=== PATIENT | female | born 1960 | race Caucasian/White ===

== ENCOUNTER 2024-08-04 16:57 | Emergency (ER) | payer MEDICARE, MEDICAID, SELFPAY ==
--- NOTE | ~2024-08-04 | XR_ITS ---
CLINICAL HISTORY: pain Three views of the left shoulder. COMPARISON: None FINDINGS: Proximal left humerus, the left scapula, and the left clavicle appear intact. Humeral head is appropriately seated in the glenoid. Small calcification present along the greater tuberosity. Mild hypertrophy of the left acromioclavicular joint. Visualized portions of the left lung are clear. IMPRESSION: 1. No radiographic evidence of acute injury to the left shoulder. 2. 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 3. Mild acromioclavicular joint degenerative changes. This document has been electronically signed by: Bhavik Painter MD on 08/04/2024 18:47:16
--- NOTE | 2024-08-04 17:00 | ECG_ITS ---
Test Reason : L ARM PAIN Blood Pressure : / mmHG Vent. Rate : 084 BPM Atrial Rate : 084 BPM P-R Int : 168 ms QRS Dur : 084 ms QT Int : 364 ms P-R-T Axes : 044 -13 068 degrees QTc Int : 430 ms Normal sinus rhythm Left ventricular hypertrophy with repolarization abnormality ( R in aVL , [employer] product ) Abnormal ECG No previous ECGs available Referred By: Christelle Wade Electronically Signed By:KIMMIE SALCIDO MD
--- NOTE | 2024-08-04 17:11 | ED.GENADULT ---
HPI - General Adult General Chief complaint: General Medical Stated complaint: left arm pain, high bp Time Seen by Provider: 08/04/24 22:21 Source: patient, RN notes reviewed and old records reviewed Mode of arrival: ambulatory Limitations: no limitations History of Present Illness ED Provider: Young TAMEZ narrative: 64-year-old female presents for evaluation of left shoulder pain. She has had the pain for the last few weeks but worsening since yesterday The patient states that she can not sleep due to the pain her left shoulder. She states it starts? at the back of my shoulder blade. ? The pain radiates up into her neck and into her left shoulder and down the left arm. Her pain is worse with movement. She denies any injury She denies any history of coronary artery disease but does have a history of diabetes and hypertension Denies any chest pain or shortness of breath Related Data Previous Rx's ?Medication ?Instructions ?Recorded naproxen 500 mg tablet 500 mg PO BID PRN pain #20 tabs 08/04/24 Allergies Allergy/AdvReac Type Severity Reaction Status Date / Time No Known Allergies Allergy Verified 08/04/24 17:16 Review of Systems Constitutional: Constitutional: Denies body ache(s), Denies chills, Denies fever(s) and Denies headache(s) Eyes: Eyes: Denies exophthalmos ENT: Denies vertigo, Denies dizziness and Denies headache(s) Cardiovascular: Cardiovascular: Denies chest pain and Denies dyspnea Respiratory: Respiratory: Denies cough and Denies dyspnea Gastrointestinal: Gastrointestinal: Denies abdominal pain Musculoskeletal: Musculoskeletal: Reports arthralgias, Reports joint swelling, Reports limited range of motion and Denies numbness Integumentary/Breasts: Skin/Breast: Denies rash Neurologic: Denies vertigo, Denies dizziness, Denies headache(s) and Denies numbness Psychiatric: Psychiatric: Denies anxiety PMFSH Social History Social History Advance Directives: No Advance Directives Information Provided: No Do you have a plan to hurt others: No Plan Physical Exam ED Vital Signs: Vital Signs - 24 hr 08/04/24 17:15 08/04/24 20:15 08/04/24 23:41 Temperature 98.4 F 98.6 F Pulse Rate 95 85 74 Respiratory Rate 16 18 15 Blood Pressure 191/96 H 172/84 H 168/83 H Pulse Oximetry 97 96 96 Oxygen Delivery Method Room Air Room Air Room Air BMI result Body Mass Index 40.0 Const General: healthy appearing, comfortable, no acute distress, alert and awake Nutritional Appearance: well nourished Orientation/consciousness: patient oriented x3 HENMT Head: Yes normocephalic and Yes atraumatic Eyes Eyelids: Yes eyelids normal Conjunctivae: conjunctivae normal Sclerae: sclerae normal Corneas: corneas normal Pupils: Equal, round and reactive pupils present EOM: EOMs intact bilaterally Neck Neck: Yes full ROM Resp Effort & Inspection: normal respiratory effort, able to speak in complete sentences and not labored Cardio Rate: regular rate Rhythm: regular rhythm GI Inspection: No distended Palpation (GI): Soft to palpation, not firm, nontender, no guarding and not rigid Skin General skin exam: elasticity normal Neuro General: patient oriented x3 Cranial nerves: Yes Equal, round and reactive pupils present and Yes Bilaterally intact EOM present Cognition (Neuro): normal cognition Course Course Course Narrative: This is a Rapid Medical Exam performed in triage by Christelle Wade PA-C. Full HPI, ROS and PE to be performed by primary ED provider. 64 yo F presenting to the ED c/o LUE pain x few weeks & elevated BP at home to 165/93. Admits to assoc [facility]. denies known injury/fall. Reports compliance w/BP meds. Denies CP/SOB, numbness/tingling PE: ambulating w/steady gait, nontoxic appearing, BP 191/96 Plan: EKG, labs, XR Medical Decision Making Medical Decision Making [facility] Narrative: 64-year-old female presents for evaluation of left upper back and shoulder pain. Her pain is reproducible on exam. It is not pleuritic in nature. She has no history of coronary artery disease but does have several risk factors. The patient's troponin is negative and she rules out for ACS with a nonischemic EKG. The patient was hypertensive on arrival which improved without intervention. This is possibly due to her discomfort/shoulder pain. She has no chest pain that radiates through to her back but rather back pain that is reproducible, I feel that aortic dissection is less likely as well. Her shoulder x-ray shows calcific tendonitis which is likely the cause of her pain today. I discussed this with the patient and she will be discharged with symptomatic care. Differential Diagnosis Differential Diagnoses: The differential diagnosis associated with the presentation includes Calcific tendinitis ACS less likely Aortic dissection less likely Shoulder sprain Muscle strain Lab Data MDM Lab Attestation statement: I reviewed the patient's lab results. No leukocytosis or anemia. Normal platelet count. No electrolyte abnormalities. Random glucose of 117. There was no evidence of DKA but the patient is a diabetic. 08/04/24 18:14 08/04/24 18:14 Labs: Lab Results 08/04/24 Range/Units 18:14 WBC 8.9 (4.8-10.8) X10*3/uL RBC 4.74 (4.20-5.50) X10*6/uL Hgb 12.5 (12.0-16.0) g/dl Hct 38.6 (37.0-47.0) % MCV 81.4 (80.0-98.0) fL MCH 26.4 L (27.0-33.0) pg MCHC 32.4 (31.0-35.0) g/dl RDW 14.9 (11.0-16.0) % Plt Count 273 (160-400) X10*3/uL MPV 11.0 (9.4-12.3) fL Immature Gran % (Auto) 0.9 H (0.0-0.4) % Neut % (Auto) 68.3 (45-73) % Lymph % (Auto) 19.2 L (20-40) % [place] % (Auto) 6.7 (2-11) % Eos % (Auto) 4.2 H (0-4) % Baso % (Auto) 0.7 (0-2) % Lymph # (Auto) 1.7 (1.2-4.9) X10*3/uL [place] # (Auto) 0.6 (0.1-1.2) X10*3/uL Eos # (Auto) 0.4 (0.0-0.4) X10*3/uL Baso # (Auto) 0.1 (0.0-0.2) X10*3/uL Abs Immat Gran (auto) 0.08 H (0.00-0.03) X10*3/uL Absolute Neuts (auto) 6.1 (2.0-8.3) x10*3/uL Absolute Nucleated RBC 0.000 (0.0-0.012) X10*3/uL Nucleated RBC % (auto) 0.0 (0.0-0.2) /100WBC Sodium 141 (135-145) mmol/L Potassium 3.9 (3.3-5.1) mmol/L Chloride 104 (96-108) mmol/L Carbon Dioxide 25 (22-29) mmol/L Anion Gap 16 (12-20) BUN 12 (9-16) mg/dL Creatinine 0.70 (0.5-1.4) mg/dL Estim Creat Clear Calc 88.1 Estimated GFR > 60 Random Glucose 117 H (60-115) mg/dL Calcium 9.1 (8.4-10.2) mg/dL Magnesium 1.8 (1.6-2.6) mg/dL Total Bilirubin 0.4 (0.0-1.0) mg/dL Direct Bilirubin 0.2 (0.0-0.5) mg/dL AST 43 H (5-31) U/L ALT 38 H (0-31) U/L Alkaline Phosphatase 98 (39-117) U/L Troponin I High Sens < 2.7 (<3.5-17.0) ng/L Total Protein 7.6 (6.5-8.0) g/dL Albumin 4.3 (3.5-5.0) g/dL Independent Interpretation I performed an independent interpretation of an: EKG Interpretation: Normal sinus rhythm with a rate of [address] segment elevations or depressions. Radiology Impression Discussion of test interpretation with radiology: I have reviewed the radiologist's reading. Radiologist Impression: FINDINGS: Proximal left humerus, the left scapula, and the left clavicle appear intact. Humeral head is appropriately seated in the glenoid. Small calcification present along the greater tuberosity. Mild hypertrophy of the left acromioclavicular joint. Visualized portions of the left lung are clear. IMPRESSION: 1. No radiographic evidence of acute injury to the left shoulder. 2. 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 3. Mild acromioclavicular joint degenerative changes. This document has been electronically signed by: Bhavik Painter MD on 08/04/2024 18:47:16 Discharge Plan Discharge Clinical Impression: Calcific tendonitis of left shoulder region Patient Disposition: Home, Self-Care Instructions: Rotator Cuff Tendinitis (ED), Calcific Tendinitis (ED) Additional Instructions: Your blood work was reassuring. Your x-ray showed calcific tendinitis of the left rotator cuff This is likely the cause of your pain today Take naproxen twice a day for the pain. You may follow up with Orthopedics at the number provided Prescriptions: New naproxen 500 mg tablet 500 mg PO BID PRN (Reason: pain) Qty: 20 0RF Referrals: Dom Goodwin MD [Physician] - (Calcific tendinitis left shoulder) Print Language: Faroese
[2024-08-04 17:15] VITALS: BP 191/96; PULSE 95; RESP 16; TEMP 36.9; O2SAT 97; BMI 40.0
[2024-08-04 18:20] LABS: MANUAL DIFF FLAG NO
[2024-08-04 18:22] LABS: Basophils Absolute Auto 0.1 X10*3/uL (0.0-0.2); Basophils Percent Auto 0.7 % (0-2); Eosinophils Absolute Auto 0.4 X10*3/uL (0.0-0.4); Eosinophils Percent Auto 4.2 % (0-4); Hematocrit 38.6 % (37.0-47.0); Hemoglobin 12.5 g/dl (12.0-16.0); Imm Gran Abs Auto 0.08 X10*3/uL (0.00-0.03); Imm Gran Pct Auto 0.9 % (0.0-0.4); Lymphocytes Absolute Auto 1.7 X10*3/uL (1.2-4.9); Lymphocytes Percent Auto 19.2 % (20-40); Mean Corpuscular HGB Conc 32.4 g/dl (31.0-35.0); Mean Corpuscular Hemoglobin 26.4 pg (27.0-33.0); Mean Corpuscular Volume 81.4 fL (80.0-98.0); Monocytes Absolute Auto 0.6 X10*3/uL (0.1-1.2); Monocytes Percent Auto 6.7 % (2-11); Neutrophils Absolute Auto 6.1 x10*3/uL (2.0-8.3); Neutrophils Percent Auto 68.3 % (45-73); Platelet Count 273 X10*3/uL (160-400); Red Blood Count 4.74 X10*6/uL (4.20-5.50); Red Cell Distribution Width 14.9 % (11.0-16.0); White Blood Count 8.9 X10*3/uL (4.8-10.8)
[2024-08-04 18:42] LABS: Alanine Aminotransferase 38 U/L (0-31); Albumin Level 4.3 g/dL (3.5-5.0); Alkaline Phosphatase 98 U/L (39-117); Anion Gap 16 (12-20); Aspartate Amino Transferase 43 U/L (5-31); Bilirubin Direct 0.2 mg/dL (0.0-0.5); Bilirubin Total 0.4 mg/dL (0.0-1.0); Blood Urea Nitrogen 12 mg/dL (9-16); Calcium 9.1 mg/dL (8.4-10.2); Carbon Dioxide 25 mmol/L (22-29); Chloride 104 mmol/L (96-108); Creatinine Clr Calc Pharmacy 88.1; Estimated Glomerular Filt Rate > 60; Glucose Random 117 mg/dL (60-115); Magnesium 1.8 mg/dL (1.6-2.6); Potassium 3.9 mmol/L (3.3-5.1); Sodium 141 mmol/L (135-145); Total Protein 7.6 g/dL (6.5-8.0)
[2024-08-04 18:51] LABS: Troponin-I High Sensitivity < 2.7 ng/L (<3.5-17.0)
[2024-08-04 20:15] VITALS: BP 172/84; PULSE 85; RESP 18; O2SAT 96
[2024-08-04 23:41] VITALS: BP 168/83; PULSE 74; RESP 15; TEMP 37; O2SAT 96
[2024-08-05] MEDS: Ketorolac Tromethamine 30 MG/ML VIAL IM (00:06)
[2024-08-05 00:09] VITALS: BP 168/83; PULSE 74; RESP 15; TEMP 37; O2SAT 96
== END 2024-08-05 00:09 | disposition home or self-care (01) ==
PROVIDERS: Physician Assistant; Emergency Provider Emergency Medicine Emergency Medical Services; PCP Internal Medicine
DX: M75.32 Calcific tendinitis of left shoulder (principal); M25.512 Pain in left shoulder; R51.9 Headache, unspecified; I10 Essential (primary) hypertension; E11.9 Type 2 diabetes mellitus without complications
CPT/HCPCS: 36415; 73030; 80048; 80076; 83735; 84484; 85025; 85610; 93005; 96372; 99284; J1885

== ENCOUNTER → 2024-08-04 17:00 | Outpatient (BNV) | payer MEDICARE, MEDICAID, SELFPAY | PROVIDERS: Emergency Provider Emergency Medicine Emergency Medical Services; PCP Internal Medicine; Visit Provider Internal Medicine Cardiovascular Disease | DX: I10 Essential (primary) hypertension (principal) | CPT/HCPCS: 93010 ==

== ENCOUNTER → 2024-08-04 17:18 | Outpatient (BNV) | payer MEDICARE, SELFPAY | PROVIDERS: PCP Internal Medicine; Visit Provider Radiology Diagnostic Radiology | DX: M25.512 Pain in left shoulder (principal) | CPT/HCPCS: 73030 ==